=== PATIENT | female | born 1995 | race Caucasian/White ===

== ENCOUNTER → 2020-06-26 | Outpatient (CLI) | payer OTHER ==
[2020-06-26 16:44] LABS: MUDS CUTOFF CONCENTRATIONS CUTOFF CONC BELOW:
[2020-06-26 16:50] LABS: BILIRUBIN,URINE NEGATIVE (NEGATIVE); GLUCOSE, URINE (UA) NEGATIVE (NEGATIVE); KETONES,URINE (UA) 15 mg/dL (NEGATIVE); LEUKOCYTE ESTERASE, URINE TRACE (NEGATIVE); NITRITE,URINE NEGATIVE (NEGATIVE); OCCULT BLOOD,URINE NEGATIVE (NEGATIVE); PROTEIN,URINE NEGATIVE (NEGATIVE); UROBILINOGEN,URINE 0.2 (NORMAL) E.U./dL (NORMAL)
[2020-06-26 17:04] LABS: CLARITY,URINE CLEAR (CLEAR)
[2020-06-26 17:05] LABS: BACTERIA,URINE None Seen /HPF (None Seen); RBC,URINE None Seen /HPF (0-5); SQUAMOUS EPITHELIAL CELL,UR MOD Squamous (<= Few)
[2020-06-26 17:10] LABS: AMPHETAMINE SCREEN,URINE NEGATIVE (NEGATIVE); BENZODIAZEPINES SCREEN, URINE NEGATIVE (NEGATIVE); COCAINE SCREEN URINE NEGATIVE (NEGATIVE); METHADONE SCREEN, URINE NEGATIVE (NEGATIVE); METHAMPHETAMINES SCREEN, URINE NEGATIVE (NEGATIVE); OPIATE SCREEN, URINE NEGATIVE (NEGATIVE); OXYCODONE SCREEN, URINE NEGATIVE (NEGATIVE); PROPOXYPHENE SCREEN, URINE NEGATIVE (NEGATIVE); TRICYCLIC ANTIDEPRESSANT,URINE NEGATIVE (NEGATIVE)
== END ==
LOC: LAB.R 08:00
PROVIDERS: ATTEND Advanced Practice Midwife
DX: Z32.01 Encounter for pregnancy test, result positive (principal)
CPT/HCPCS: 80306; 80349; 81001; 81599; 87086

== ENCOUNTER 2020-07-03 16:06 | Outpatient (CLI) | payer OTHER | END 2020-07-03 16:07 | disposition home or self-care (01) | LOC: LAB 16:06 | PROVIDERS: ATTEND Nurse Practitioner Obstetrics & Gynecology | DX: O20.9 Hemorrhage in early pregnancy, unspecified (principal) | CPT/HCPCS: 84702; 86900; 86901 ==

== ENCOUNTER 2020-07-09 12:56 | Outpatient (CLI) | payer OTHER ==
--- NOTE | 2020-07-09 17:34 | Ultrasound Report ---
PROCEDURE: OB First Trimester w/TV INDICATIONS: POSITIVE TEST OUTSIDE/PRIOR DATING DATA: Last menstrual period (LMP): 05/22/2020. LMP-based estimated date of delivery (NICHOLAS): 02/26/2021. First dating scan (date and location): 09/08/2019. Estimated date of delivery (NICHOLAS) from first dating scan: Not applicable. TECHNIQUE: Real-time scanning was performed of the fetus and maternal pelvic organs, with image documentation. Endovaginal scanning was also performed to better visualize the fetus and maternal ovaries. COMPARISON: None FINDINGS: Embryo: Intrauterine gestational sac with possible pole is identified. Gestational sac measure s 10 mm corresponding to 5 weeks 5 days. No definitive crown-rump length is identified. No hear t tones are identified. Measurement variability in dating: +/- 4 weeks by LMP, +/- 7 days by mean sac diameter (use before 6 weeks gestation if crown-rump length not able to be measured), +/- 5 days by crown-rump length (6-12 weeks gestation). Maternal organs: Ovaries demonstrate a right corpus luteal cyst.. Limited images through the kidney s demonstrate no hydronephrosis. IMPRESSION: 1. Intrauterine gestational sac without definitive visualization of crown-rump length. This could be secondary to early gestational age, currently measured at 5 weeks 5 days based on gestational sac siz e. Recommend short interval imaging follow-up for evaluation of progression. Reviewed by: Giuliana Greenfield MD on 07/09/2020 5:32 PM PST Approved by: Giuliana Greenfield MD on 07/09/2020 5:32 PM PST Station ID: [id number]
== END 2020-07-09 12:57 | disposition home or self-care (01) ==
LOC: DI 12:56
PROVIDERS: ATTEND Advanced Practice Midwife
DX: Z32.01 Encounter for pregnancy test, result positive (principal)
CPT/HCPCS: 76801; 76817

== ENCOUNTER 2020-07-12 11:16 | Outpatient (CLI) | payer OTHER ==
[2020-07-12 12:28] LABS: HCG,QUALITATIVE BLOOD POSITIVE
== END 2020-07-12 11:17 | disposition home or self-care (01) ==
LOC: LAB 11:16
PROVIDERS: ATTEND Nurse Practitioner Obstetrics & Gynecology
DX: O36.80X0 Pregnancy with inconclusive fetal viability, not applicable or unspecified (principal)
CPT/HCPCS: 36415; 84703

== ENCOUNTER 2020-07-14 07:05 | Outpatient (CLI) | payer OTHER | END 2020-07-14 07:06 | disposition home or self-care (01) | LOC: LAB 07:05 | PROVIDERS: ATTEND Nurse Practitioner Obstetrics & Gynecology | DX: O36.80X0 Pregnancy with inconclusive fetal viability, not applicable or unspecified (principal) | CPT/HCPCS: 36415; 84702 ==

== ENCOUNTER 2020-07-16 11:16 | Outpatient (CLI) | payer OTHER | END 2020-07-16 11:17 | disposition home or self-care (01) | LOC: LAB 11:16 | PROVIDERS: ATTEND Obstetrics & Gynecology | DX: O36.80X0 Pregnancy with inconclusive fetal viability, not applicable or unspecified (principal); N93.9 Abnormal uterine and vaginal bleeding, unspecified | CPT/HCPCS: 36415; 84702; 84703 ==

== ENCOUNTER 2020-07-25 08:00 | Outpatient (CLI) | payer OTHER | END 2020-07-25 23:59 | disposition home or self-care (01) | LOC: LAB.WCP 08:00 | PROVIDERS: ATTEND Nurse Practitioner Obstetrics & Gynecology | DX: O03.9 Complete or unspecified spontaneous abortion without complication (principal) | CPT/HCPCS: 36415; 84702 ==

== ENCOUNTER → 2020-08-01 | Outpatient (CLI) | payer OTHER | LOC: LAB.WCP 07-30 08:00 | PROVIDERS: ATTEND Nurse Practitioner Obstetrics & Gynecology | DX: O03.9 Complete or unspecified spontaneous abortion without complication (principal) | CPT/HCPCS: 36415; 84702 ==

== ENCOUNTER 2020-08-08 08:00 | Outpatient (CLI) | payer OTHER | END 2020-08-08 23:59 | disposition home or self-care (01) | LOC: LAB.WCP 08:00 | PROVIDERS: ATTEND Nurse Practitioner Obstetrics & Gynecology | DX: O03.9 Complete or unspecified spontaneous abortion without complication (principal) | CPT/HCPCS: 36415; 84702 ==

== ENCOUNTER 2020-12-13 12:06 | Outpatient (CLI) | payer OTHER ==
[2020-12-13 12:09] LABS: MUDS CUTOFF CONCENTRATIONS CUTOFF CONC BELOW:
[2020-12-13 12:15] LABS: BILIRUBIN,URINE NEGATIVE (NEGATIVE); GLUCOSE, URINE (UA) NEGATIVE (NEGATIVE); KETONES,URINE (UA) TRACE mg/dL (NEGATIVE); LEUKOCYTE ESTERASE, URINE TRACE (NEGATIVE); NITRITE,URINE NEGATIVE (NEGATIVE); OCCULT BLOOD,URINE NEGATIVE (NEGATIVE); PH,URINE 6.5 PH (5.0-7.5); PROTEIN,URINE NEGATIVE (NEGATIVE); UROBILINOGEN,URINE 0.2 (NORMAL) E.U./dL (NORMAL)
[2020-12-13 12:16] LABS: CLARITY,URINE CLEAR (CLEAR)
[2020-12-13 12:22] LABS: AMORPHOUS SEDIMENT,UR Rare /LPF; BACTERIA,URINE Rare /HPF (None Seen); MUCUS,URINE Few Strands; RBC,URINE 0-5 /HPF (0-5); SQUAMOUS EPITHELIAL CELL,UR FEW Squamous (<= Few); WBC,URINE 0-3 /HPF (0-5)
[2020-12-13 12:46] LABS: AMPHETAMINE SCREEN,URINE NEGATIVE (NEGATIVE); BARBITURATE SCREEN,UR NEGATIVE (NEGATIVE); BENZODIAZEPINES SCREEN, URINE NEGATIVE (NEGATIVE); COCAINE SCREEN URINE NEGATIVE (NEGATIVE); METHADONE SCREEN, URINE NEGATIVE (NEGATIVE); METHAMPHETAMINES SCREEN, URINE NEGATIVE (NEGATIVE); OPIATE SCREEN, URINE NEGATIVE (NEGATIVE); OXYCODONE SCREEN, URINE NEGATIVE (NEGATIVE); PROPOXYPHENE SCREEN, URINE NEGATIVE (NEGATIVE); THC CANNABINOID SCREEN, URINE POSITIVE (NEGATIVE); TRICYCLIC ANTIDEPRESSANT,URINE NEGATIVE (NEGATIVE)
== END 2020-12-13 12:07 | disposition home or self-care (01) ==
LOC: LAB.R 12:06
PROVIDERS: ATTEND Nurse Practitioner Obstetrics & Gynecology
DX: Z32.01 Encounter for pregnancy test, result positive (principal)
CPT/HCPCS: 80306; 81001; 87086

== ENCOUNTER 2020-12-24 11:40 | Outpatient (CLI) | payer OTHER ==
--- NOTE | 2020-12-24 16:45 | Ultrasound Report ---
PROCEDURE: OB First Trimester INDICATIONS: positive test OUTSIDE/PRIOR DATING DATA: Last menstrual period (LMP): 10/17/2020. LMP-based estimated date of delivery (NICHOLAS): 05/24/2021. First dating scan (date and location): 12/24/2020. Estimated date of delivery (NICHOLAS) from first dating scan: 07/29/2021. TECHNIQUE: Real-time scanning was performed of the fetus and maternal pelvic organs, with image documentation. COMPARISON: None FINDINGS: Embryo: Single live intrauterine is identified with crown-rump length measuring 2.3 cm cor responding to 9 weeks 0 days. heart rate is present at 178 bpm. There is a small focus of subch orionic hemorrhage measuring 6 x 5 x 10 mm. Measurement variability in dating: +/- 4 weeks by LMP, +/- 7 days by mean sac diameter (use before 6 weeks gestation if crown-rump length not able to be measured), +/- 5 days by crown-rump length (6-12 weeks gestation). Maternal organs: Ovaries demonstrate a left corpus luteal cyst measuring 21 x 16 x 14 mm.. IMPRESSION: 1. Single live intrauterine measuring 9 weeks 0 days. 2. Small focus of subchorionic hemorrhage. Reviewed by: Giuliana Greenfield MD on 12/24/2020 4:44 PM PDT Approved by: Giuliana Greenfield MD on 12/24/2020 4:44 PM PDT Station ID: [id number]
== END 2020-12-24 11:41 | disposition home or self-care (01) ==
LOC: DI 11:40
PROVIDERS: ATTEND Nurse Practitioner Obstetrics & Gynecology
DX: Z32.01 Encounter for pregnancy test, result positive (principal); O41.8X10 Other specified disorders of amniotic fluid and membranes, first trimester, not applicable or unspecified; Z3A.09 9 weeks gestation of pregnancy

== ENCOUNTER 2021-01-02 08:00 | Outpatient (CLI) | payer OTHER ==
[2021-01-02 21:44] LABS: CHLAMYDIA TRACHOMATIS DNA NEGATIVE (NEGATIVE); NEISSERIA GONORRHOEAE DNA NEGATIVE (NEGATIVE); TRICHOMONAS VAGINALIS DNA NEGATIVE (NEGATIVE)
== END 2021-01-02 23:59 | disposition home or self-care (01) ==
LOC: LAB.WC 08:00
PROVIDERS: ATTEND Nurse Practitioner Obstetrics & Gynecology
DX: Z36.89 Encounter for other specified antenatal screening (principal)
CPT/HCPCS: 87491; 87591; 87661

== ENCOUNTER 2021-01-14 10:17 | Outpatient (CLI) | payer OTHER ==
[2021-01-14 10:45] LABS: BASOPHILS % (AUTO) 0.7 %; EOSINOPHILS # (AUTO) 0.1 10^3/uL (0.0-0.7); EOSINOPHILS % (AUTO) 0.8 %; HCT - HEMATOCRIT 37.4 % (37.0-47.0); LYMPHOCYTES # (AUTO) 1.6 10^3/uL (1.5-3.5); LYMPHOCYTES % (AUTO) 26.3 %; MEAN CORPUSCULAR HEMOGLOBIN 31.2 pg (27.0-31.0); MEAN CORPUSCULAR HGB CONC 34.8 g/dL (32.0-36.0); MEAN CORPUSCULAR VOLUME 89.7 fL (81.0-99.0); MEAN PLATELET VOLUME 11.9 fL (7.9-10.8); MONOCYTES # (AUTO) 0.5 10^3/uL (0.0-1.0); MONOCYTES % (AUTO) 7.5 %; NEUTROPHILS % (AUTO) 64.4 %; PLT - PLATELET COUNT 241 10^3/uL (130-450); RED BLOOD COUNT 4.17 10^6/uL (4.20-5.40); RED CELL DISTRIBUTION WIDTH 12.2 % (12.0-15.0); WHITE BLOOD COUNT 6.1 x10^3/uL (4.8-10.8)
[2021-01-16 12:38] LABS: HEPATITIS B SURFACE ANTIGEN NON-REACTIVE (NON-REACTIVE)
[2021-01-16 12:51] LABS: HEPATITIS C ANTIBODY NON-REACTIVE (NON-REACTIVE)
[2021-01-16 15:47] LABS: HIV AG/AB 4TH GEN NON-REACTIVE (NON-REACTIVE)
== END 2021-01-14 10:18 | disposition home or self-care (01) ==
LOC: LAB 10:17
PROVIDERS: ATTEND Nurse Practitioner Obstetrics & Gynecology
DX: Z34.90 Encounter for supervision of normal pregnancy, unspecified, unspecified trimester (principal); Z36.89 Encounter for other specified antenatal screening; Z36.8A Encounter for antenatal screening for other genetic defects
CPT/HCPCS: 36415; 81220; 81599; 85025; 86592; 86762; 86787; 86803; 86850; 86900; 86901; 87340; 87389

== ENCOUNTER 2021-02-10 09:52 | Outpatient (CLI) | payer OTHER ==
[2021-02-13 09:21] LABS: AFP MOM 0.81; CALCULATED GESTATIONAL AGE 16.6; CIGARETTE SMOKER? NOT GIVEN; HCG MOM 1.01; HISTORY OF NEURAL TUBE DEFECTS N; INSULIN DEPEND DIABETIC N; MATERNAL WEIGHT 174 lbs; NUMBER OF FETUSES 1; PAPP-A 1034.1 ng/mL
== END 2021-02-10 09:53 | disposition home or self-care (01) ==
LOC: LAB 09:52
PROVIDERS: ATTEND Nurse Practitioner Obstetrics & Gynecology
DX: Z36.8A Encounter for antenatal screening for other genetic defects (principal)
CPT/HCPCS: 82105; 82677; 84163; 84702; 86336

== ENCOUNTER 2021-03-08 08:33 | Outpatient (CLI) | payer SELFPAY ==
--- NOTE | 2021-03-08 19:01 | Ultrasound Report ---
PROCEDURE: OB Detailed Eval INDICATIONS: SUPERVISON OF NORMAL OUTSIDE/PRIOR DATING DATA: Last menstrual period (LMP): 10/17/2020. LMP-based estimated date of delivery (NICHOLAS): 07/24/2021. First dating scan (date and location): 12/24/2020. Estimated date of delivery (NICHOLAS) from first dating scan: 07/29/2021. TECHNIQUE: Real-time scanning was performed of the fetus, with image documentation and biometric measurements. Endovaginal scanning: None COMPARISON: 12/24/2020 FINDINGS: General: A single living intrauterine gestation is present. Presentation: Breech Placenta: Placental position is anterior, without previa. Amniotic fluid index: 12.5 cm, normal for gestational age. heart rate: 137 beats per minute. Maternal cervical canal: 4.6 cm long; normal length is 2.5 cm or more. biometrics: Biparietal diameter: 4.2 cm, 18 week 6 day Head circumference: 16.5 cm, 19 week 2 day Abdominal circumference: 14.6 cm, 19 week 6 day Femur length: 3.1 cm, 19 week 5 day Estimated gestational age from initial scan: 19 week 4 day Composite gestational age from present scan: 19 week 3 day Estimated weight and percentile: 308 g, 54 percentile Measurement variability in biometric dating: +/- 10 days from 12-20 weeks gestation, +/- 2 weeks from 20-30 weeks gestation, +/- 3 weeks at 30 weeks gestation or later. Anatomic survey: Neuro: Ventricles are normal at less than 10 mm. Cisterna magna is normal at 3-11 mm. Cerebellum i s normal in size and morphology. Nuchal skin fold: Normal at less than 6 mm between 14 and 20 weeks gestational age. Face: Nose and lips, facial profile are normal. Spine: Not well visualized due to patient positioning Heart: 4-chambered heart is present, with normal ventricular outflow tracts. Diaphragm: Diaphragm is intact. Stomach: Left-sided stomach is present. Kidneys: No hydronephrosis. Normal is less than 5 mm in 2nd trimester, less than 7 mm in 3rd trimester. Cord: 3 vessel cord has orthotopic insertion. Bladder: Normal in size. Extremities: All 4 extremities are visualized. IMPRESSION: Single live intrauterine consistent with 19 week 3 day gestation by ultrasound. spine not well visualized due to patient positioning. Attention will be given in follow-up scan s Reviewed by: Cory Tejada MD on 03/08/2021 5:59 PM AKJANET Approved by: Cory Tejada MD on 03/08/2021 5:59 PM AKJANET Station ID: [id number]
== END 2021-03-08 08:34 | disposition home or self-care (01) ==
LOC: DI 08:33
PROVIDERS: ATTEND Nurse Practitioner Obstetrics & Gynecology
DX: Z34.02 Encounter for supervision of normal first pregnancy, second trimester (principal)

== ENCOUNTER 2021-03-28 14:26 | Outpatient (CLI) | payer OTHER ==
--- NOTE | 2021-03-29 09:18 | Ultrasound Report ---
PROCEDURE: OB F/U or Repeat INDICATIONS: OUTSIDE/PRIOR DATING DATA: Last menstrual period (LMP): 10/17/2020. LMP-based estimated date of delivery (NICHOLAS): 08-12. First dating scan (date and location): 12/24/2020. Estimated date of delivery (NICHOLAS) from first dating scan: 07/29/2021. The below data below was generated using the ultrasound NICHOLAS of 07/29/2021 TECHNIQUE: Real-time scanning was performed of the fetus, with image documentation. COMPARISON: 03/08/2021, 12/24/2020 FINDINGS: General: A single live intrauterine gestation is present. Presentation: Cephalic Placenta: Placental position is anterior, without previa. Amniotic fluid index: 14.3 cm, within normal limits for gestational age. heart rate: 148 beats per minute. Maternal cervical canal: 3.4 cm long; normal length is 2.5 cm or more. Other: Not applicable. No significant abnormality of the spine can be seen. However, the skin line overlying the spine is not well seen, secondary to position. IMPRESSION: No significant abnormality is identified. No significant abnormality of the spine is seen. Reviewed by: Byron Schafer MD on 03/29/2021 8:16 AM REJI Approved by: Byron Schafer MD on 03/29/2021 8:16 AM REJI Station ID: [id number]
== END 2021-03-28 14:27 | disposition home or self-care (01) ==
LOC: DI 14:26
PROVIDERS: ATTEND Nurse Practitioner Obstetrics & Gynecology
DX: Z34.00 Encounter for supervision of normal first pregnancy, unspecified trimester (principal); Z36.89 Encounter for other specified antenatal screening

== ENCOUNTER 2021-04-25 11:31 | Outpatient (CLI) | payer OTHER ==
[2021-04-25 12:52] LABS: HCT - HEMATOCRIT 33.4 % (37.0-47.0); HGB - HEMOGLOBIN 11.3 g/dL (12.0-16.0); MEAN CORPUSCULAR HEMOGLOBIN 31.5 pg (27.0-31.0); MEAN CORPUSCULAR HGB CONC 33.8 g/dL (32.0-36.0); RED BLOOD COUNT 3.59 10^6/uL (4.20-5.40); RED CELL DISTRIBUTION WIDTH 12.1 % (12.0-15.0); WHITE BLOOD COUNT 10.9 x10^3/uL (4.8-10.8)
== END 2021-04-25 11:32 | disposition home or self-care (01) ==
LOC: LAB 11:31
PROVIDERS: ATTEND Advanced Practice Midwife
DX: Z34.90 Encounter for supervision of normal pregnancy, unspecified, unspecified trimester (principal); Z36.8A Encounter for antenatal screening for other genetic defects
CPT/HCPCS: 36415; 82950; 85027

== ENCOUNTER 2021-07-01 08:00 | Outpatient (CLI) | payer OTHER | END 2021-07-01 23:59 | disposition home or self-care (01) | LOC: LAB.WC 08:00 | PROVIDERS: ATTEND Nurse Practitioner Obstetrics & Gynecology | DX: Z36.85 Encounter for antenatal screening for Streptococcus B (principal) | CPT/HCPCS: 87797 ==

== ENCOUNTER 2021-07-16 13:30 | Outpatient (CLI) | payer OTHER ==
[2021-07-16 14:04] LABS: HCT - HEMATOCRIT 37.9 % (37.0-47.0); HGB - HEMOGLOBIN 12.6 g/dL (12.0-16.0); MEAN CORPUSCULAR HEMOGLOBIN 30.1 pg (27.0-31.0); MEAN CORPUSCULAR HGB CONC 33.2 g/dL (32.0-36.0); MEAN CORPUSCULAR VOLUME 90.7 fL (81.0-99.0); MEAN PLATELET VOLUME 11.6 fL (7.9-10.8); RED BLOOD COUNT 4.18 10^6/uL (4.20-5.40); RED CELL DISTRIBUTION WIDTH 12.7 % (12.0-15.0); WHITE BLOOD COUNT 10.3 x10^3/uL (4.8-10.8)
[2021-07-16 14:18] LABS: CREATININE,URINE 45.2 mg/dL; TOTAL PROTEIN,URINE TIMED < 6 mg/dL
[2021-07-16 14:23] LABS: ALBUMIN 3.1 g/dL (3.2-5.5); ALBUMIN/GLOBULIN RATIO 0.8 (1.0-2.2); BILIRUBIN,TOTAL 0.5 mg/dL (0.2-1.0); CALCIUM 8.8 mg/dL (8.5-10.3); CREATININE 0.5 mg/dL (0.4-1.0); TOTAL PROTEIN 7.1 g/dL (6.7-8.2)
== END 2021-07-16 13:31 | disposition home or self-care (01) ==
LOC: LAB 13:30
PROVIDERS: ATTEND Nurse Practitioner Obstetrics & Gynecology
DX: R03.0 Elevated blood-pressure reading, without diagnosis of hypertension (principal)
CPT/HCPCS: 36415; 80053; 82570; 84156; 85027

== ENCOUNTER 2021-07-22 12:38 | Inpatient (IN) | payer OTHER ==
[2021-07-22] MEDS ORDERED: miSOPROStoL 200 MCG TABLET BC PRN (13:10)
[2021-07-22] MEDS ORDERED: SODIUM CHLORIDE FLUSH 0.9% 10 ML SYRINGE IVP PRN (13:10)
[2021-07-22] MEDS ORDERED: TRANEXAMIC ACID IN NACL 1,000 MG/100 ML BAG IV PRN (13:10)
[2021-07-22] MEDS ORDERED: OXYTOCIN/SODIUM CHLORIDE 500 ML IV PRN (13:10)
[2021-07-22] MEDS ORDERED: ONDANSETRON 4 MG/2 ML VIAL IVP PRN (13:10)
[2021-07-22] MEDS ORDERED: METHYLERGONOVINE 0.2 MG/ML VIAL IM PRN (13:10)
[2021-07-22] MEDS ORDERED: OXYTOCIN 10 UNIT/ML VIAL IM PRN (13:10)
[2021-07-22] MEDS ORDERED: CARBOPROST TROMETHAMINE 250 MCG/ML AMP IM PRN (13:10)
--- NOTE | 2021-07-22 13:15 | HISTORY & PHYSICAL EXAMINATION ---
Admit History - Visit Reason Visit Reason: Other - : 3 Parity: 2 Premature: 0 Ectopic: 0 : 0 Care: positive: [facility] Risk/History: positive: None Complications This : positive: induced HTN Smoking Status: Never smoker - Mother's Labs Mother's Blood Type: positive: O Mother's RH: positive: Positive GBS: positive: Group B Step Negative Rubella Status: positive: Immune Meds/Allgy - Allergies Allergies/Adverse Reactions: Allergies Allergy/AdvReac Type Severity Reaction Status Date / Time No Known Drug Allergies Allergy Verified 07/22/21 14:26 Review of Systems - Constitutional Constitutional: denies: Fatigue, Fever, Chills, Malaise - Eyes Eyes: denies: Blurred vision, Spots in vision, Dipolpia - Cardiovascular Cariovascular: denies: Irregular heart rate, Palpitations, Chest pain, Edema - Respiratory Respiratory: denies: Cough, SOB at rest - Gastrointestinal Gastrointestinal: denies: Change in bowel habits, Nausea, Vomiting - Integumentary Integumentary: denies: Rash, Pruritis - Neurological Neurological: denies: Headache Physical - Abdominal Exam Contraction Frequency (min/apart): 2-7 Contraction Intensity: positive: Mild Uterine Resting Tone: positive: Soft - Monitoring Strip Review: positive: Category I - Presentation Presentation: positive: Vertex - Vaginal Exam Membranes: positive: Membranes intact Dilation (in cm): 1 Effacement (%): 50 Station: positive: -2 Cervical Position: positive: Posterior - Speculum Exam Speculum Exam Performed: positive: No Plan for Labor - Plan For Labor I expect patient to be DC'd or transferred within 96 hours.: Yes Plan for Labor: Dia is a 26yo @ 39.5wks gestation by LMP c/w 9.0wk U/S who presents to [facility] for medical induction of labor secondary to gestational hypertension. She denies ARZATE, visual disturbances, RUQ or epigastric pain. Mild edema to LE's bilaterally but nothing new. She denies vaginal bleeding, leakage of fluid or contractions. She is found to contract via tocometry every 2-7 minutes and is unable to appreciate the contractions. SVE 50/-2, posterior, vertex. Membranes intact. She is supported by her mother who will depart as soon as her arrives from work. Her pre-eclampsia labs are currently pending. She has been a patient of [facility] for the duration of her which has been complicated only by her recent diagnosis of elevated blood pressure. Her PIH labs were WNL last visit. Dating Criteria: LMP 10/17/2020 Initial U/S @ 9.0wks gestation c/w LMP dating Serial exams - agree OB Hx: G1: 2011, elective termination G2: 07/17/2020 <8wks gestation; SAB G3: Current Medications: PNV Allergies: NKDA PMHx: Anxiety Surgical Hx: none Social Hx: Former smoker. no ETOH or IVDA. Michael. Expecting a boy - Meet Family Hx: Depression - sister; stroke/CVA - MGM LMP: 10/17/2020 NICHOLAS by LMP:07/27/2021 Initial U/S:@9.0wks c/w LMP dating (US NICHOLAS 07/29/2021) FINAL NICHOLAS:07/27/2021 O pos/Rubella immune VZV:immune Genetic testing: CF- Negative; serum integrated-neg FAS: WNL with the exception of poor visualization of spine. Anterior placenta, no previa. 3VC. Size c/w dating (EWF 54%tile). F/u ultrasound WNL and spine visualized WNL Glucola 104 Influenza: 05/13/2021 COVID VACC- 04/03 #1; 04/24 #2 TDAP 05/13/2021 GBS @ 36.5 wks Negative HSV: denies in self and partner Breast pump Rx provided MOD: Anticipate ; Michael. BOY, Meet; unmedicated delivery pp contraception: pap:01/2019 WNL Physical Exam: Normocephalic, atraumatic Heart RRR w/o M/G/R LUngs CTAB Abdomen gravid, soft, nontender EFW 3400g FHR baseline 135, moderate variability, + accels, no decels Contractions palpate mild every 2-7 minutes with soft resting tone SVE 1/50/-2, posterior. Vertex. Intact membranes Bilateral LE's trace edema. Mood is good Assessment: 26yo @ 39.5wks gestation by LMP c/w 9.0wk U/S Gestational hypertension GBS neg FHR Category I Plan: Pre-induction cervical ripening with misoprostol 50mcg BC q 4 hours. Continuous monitoring Encouraged ambulation and position changes. Jacuzzi PRN. Nitrous oxide PRN. Epidural per maternal request. Anticipate .
[2021-07-22 13:54] LABS: BASOPHILS # (AUTO) 0.1 10^3/uL (0.0-0.1); BASOPHILS % (AUTO) 0.5 %; EOSINOPHILS % (AUTO) 0.4 %; HCT - HEMATOCRIT 37.3 % (37.0-47.0); HGB - HEMOGLOBIN 12.6 g/dL (12.0-16.0); LYMPHOCYTES # (AUTO) 1.7 10^3/uL (1.5-3.5); LYMPHOCYTES % (AUTO) 15.6 %; MEAN CORPUSCULAR HEMOGLOBIN 30.2 pg (27.0-31.0); MEAN CORPUSCULAR HGB CONC 33.8 g/dL (32.0-36.0); MEAN CORPUSCULAR VOLUME 89.4 fL (81.0-99.0); MEAN PLATELET VOLUME 11.8 fL (7.9-10.8); MONOCYTES # (AUTO) 0.8 10^3/uL (0.0-1.0); MONOCYTES % (AUTO) 6.7 %; NEUTROPHILS # (AUTO) 8.5 10^3/uL (1.5-6.6); NEUTROPHILS % (AUTO) 76.1 %; PLT - PLATELET COUNT 261 10^3/uL (130-450); RED BLOOD COUNT 4.17 10^6/uL (4.20-5.40); RED CELL DISTRIBUTION WIDTH 12.5 % (12.0-15.0); WHITE BLOOD COUNT 11.2 x10^3/uL (4.8-10.8)
[2021-07-22] MEDS: miSOPROStoL 100 MCG TABLET BC SCH ×2 (14:00→17:58)
[2021-07-22 14:07] LABS: ALBUMIN 3.1 g/dL (3.2-5.5); ALBUMIN/GLOBULIN RATIO 0.8 (1.0-2.2); BILIRUBIN,TOTAL 0.6 mg/dL (0.2-1.0); CALCIUM 9.2 mg/dL (8.5-10.3); CREATININE 0.5 mg/dL (0.4-1.0); POTASSIUM 3.9 mmol/L (3.5-5.0); TOTAL PROTEIN 7.1 g/dL (6.7-8.2)
[2021-07-22 16:15] LABS: CREATININE,URINE 65.4 mg/dL
[2021-07-22 16:30] LABS: TOTAL PROTEIN,URINE TIMED < 6 mg/dL
[2021-07-22] MEDS ORDERED: SODIUM CHLORIDE FLUSH 0.9% 10 ML SYRINGE IVP SCH (17:00)
[2021-07-22] MEDS ORDERED: ZOLPIDEM 5 MG TABLET PO PRN (17:59)
--- NOTE | 2021-07-22 17:59 | PROVIDER PROGRESS NOTE ---
Labor Progress Note - Uterine Monitoring Uterine Monitoring Mode: positive: External toco Contraction Frequency (min/apart): 2-4 Contraction Intensity: positive: Mild Uterine Resting Tone: positive: Soft - Monitoring Monitor Mode: positive: External ultrasound Heart Rate Baseline: 135 Heart Rate Variability: positive: Moderate (6-25 bmp) Accelerations: positive: Present, 15x15 Decelerations: positive: None Strip Review: positive: Category I - Vaginal Exam Dilation (in cm): 1 Effacement (%): 50 Station: -2 Cervical Position: Posterior - Labor Progress Note Labor Progress Note/Additional Text: S: Feeling some slight menstrual-like cramping but denies pain. Open to cervical ripening balloon. Continues to deny ARZATE, visual disturbances, RUQ or epigastric pain. O: BP mildly elevated 140s/90s SVE 1/50/-2, posterior. Vertex. Intact membranes. Christiansen cervical ripening balloon placed with 60cc intrauterine and 60cc vaginal - pt tolerated placement well. S/p 1 dose of 50mcg BC misoprostol FHR baseline 135, moderate variability, + accels, no decels Contractions palpate mild every 2-4 minutes with soft resting tone A: 26yo @ 39.5wks gestation Gestational hypertension GBS neg FHR Category I P: Continue pre-induction cervical ripening with 50mcg BC misoprostol q 4hrs Continuous monitoring Ambien to promote sleep tonight Encouraged ambulation and position changes while awake. Jacuzzi PRN. Nitrous oxide PRN. Epidural per maternal request. Anticipate .
[2021-07-22] MEDS: LACTATED RINGERS 1,000 ML IV SCH (23:16)
--- NOTE | 2021-07-22 23:21 | PROVIDER PROGRESS NOTE ---
Labor Progress Note - Uterine Monitoring Uterine Monitoring Mode: positive: External toco Contraction Frequency (min/apart): 2 Contraction Intensity: positive: Mild Uterine Resting Tone: positive: Soft - Monitoring Monitor Mode: positive: External ultrasound Heart Rate Baseline: 150 Heart Rate Variability: positive: Moderate (6-25 bmp) Accelerations: positive: Present, 15x15 Decelerations: positive: None Strip Review: positive: Category I - Vaginal Exam Dilation (in cm): 4 Effacement (%): 70 Station: -2 Cervical Position: Posterior - Labor Progress Note Labor Progress Note/Additional Text: S: Rating contractions 6.5/10 pain. She is breathing through contractions with ease and her mood is good. Her is supportive at the bedside. O: FHR baseline 150s, moderate variability, + accels, one late deceleration while patient laying flat on back for SVE Contractions palpate mild every 2 minutes with soft resting tone SVE reveals cervical ripening balloon in vaginal vault s/p spontaneous expulsion. S/p 2 doses of 50mcg BC misoprostol A: 26yo @ 39.5wks gestation by LMP c/w 9.0wk U/S Gestational hypertension GBS neg FHR Category I P: Hold misoprostol secondary to tachysystole effective cervical ripening. Encouraged rest. Continuous monitoring. Nitrous oxide PRN. Jacuzzi PRN. Anticipate .
[2021-07-23] MEDS: LACTATED RINGERS 1,000 ML IV SCH ×2 (04:26→15:07)
--- NOTE | 2021-07-23 06:28 | PROVIDER PROGRESS NOTE ---
Labor Progress Note - Uterine Monitoring Uterine Monitoring Mode: positive: External toco Contraction Frequency (min/apart): intermittent, irregular Contraction Intensity: positive: Mild Uterine Resting Tone: positive: Soft - Monitoring Monitor Mode: positive: External ultrasound Heart Rate Baseline: 145 Heart Rate Variability: positive: Moderate (6-25 bmp) Accelerations: positive: Present, 15x15 Decelerations: positive: None Strip Review: positive: Category I - Vaginal Exam Dilation (in cm): 4 Effacement (%): 70 Station: -2 Cervical Position: Posterior - Labor Progress Note Labor Progress Note/Additional Text: S: States she has been having a few more irregular, mild contractions since she has been up and walking this morning. Was able to get about 2 hours of sleep in last night. States she continues to feel tired. Her partner is supportive at the bedside. O: FHR baseline 140, moderate variability, + accels, no decels Contractions palpate mild, intermittently with soft resting tone SVE 4/70/-2, posterior. Vertex. (unchanged from previous exam). A: 26yo @ 39.6wks gestation Gestational hypertension GBS neg FHR Category I P: Initiate pitocin for labor induction with titration per protocol. Consider AROM with next SVE. Continuous monitoring Encouraged ambulation and position changes. Jacuzzi PRN. Nitrous oxide PRN. Epidural per maternal request. Anticipate .
[2021-07-23] MEDS ORDERED: OXYTOCIN/SODIUM CHLORIDE 500 ML IV SCH (07:00)
[2021-07-23] MEDS: CALCIUM CARBONATE CHEW 500 MG TABLET PO SCH (08:27)
--- NOTE | 2021-07-23 13:00 | PROVIDER PROGRESS NOTE ---
Labor Progress Note - Uterine Monitoring Uterine Monitoring Mode: positive: External toco Contraction Frequency (min/apart): 2-3 Contraction Intensity: positive: Mild to moderate Uterine Resting Tone: positive: Soft - Monitoring Monitor Mode: positive: External ultrasound Heart Rate Baseline: 140 Heart Rate Variability: positive: Moderate (6-25 bmp) Accelerations: positive: Present, 15x15 Decelerations: positive: Variable, Intermittent (<50% x20 min) Strip Review: positive: Category II - Vaginal Exam Dilation (in cm): 5 Effacement (%): 70 Station: -2 Cervical Position: Posterior - Labor Progress Note Labor Progress Note/Additional Text: S: Breathing through contractions and she states she feels she is tolerating them well. She is hoping to get in the tub for relaxation. Was able to get a little more rest in the best. Feeling continued anxiety related to variable decelerations but feels reassured after we discussed in detail. Her partner is supportive at the bedside. O: FHR baseline 140, moderate variability, + accels, occasional variable decleration that respond to position changes Contractions palpate moderate every 2-4 minutes with soft resting tone SVE 5/70/-2, posterior. Vertex. SROM @ 1205. A: 26yo @ 39.6wks gestation Gestational hypertension GBS neg FHR Category II-overall reassuring
[2021-07-23] MEDS ORDERED: fentaNYL 100 MCG/2 ML VIAL IVP PRN (14:41)
[2021-07-23] MEDS: LIDOCAINE-MPF 1% 30 ML VIAL ID PRN ×2 (18:00→18:24)
--- NOTE | 2021-07-23 19:41 | DELIVERY NOTE ---
Delivery Note - Labor Labor: positive: Induced by oxytocin - Infant Delivery Method Delivery Method: positive: Spontaneous vaginal delivery - Cervical Ripening Method Cervical Ripening Method: positive: Balloon device, Misoprostil - Presentation Presentation: positive: Vertex, OA - occiput anterior - Nuchal Cord Nuchal Cord: positive: None - Episiotomy Type Episiotomy Type: positive: None - Laceration Laceration: positive: 2nd degree, Perineal - Suture Suture Type: positive: Vicryl Suture Size: positive: 2-0 - Delivery Outcome Delivery Outcome: positive: Livebirth - [place]: positive: Placed in direct skin contact with mother, Stimulated, Warmed, [place] used sex: positive: Male - Cord Cord: positive: 3 vessels - Placenta Placenta: positive: Intact, Spontaneous - Estimated Blood Loss Estimated Blood Loss (in cc): 450 - Post Delivery Events Post Delivery Events: positive: No post delivery events - Delivery Comments (Free Text/Narrative) Delivery Comments (Free Text/Narrative): Labor: This 26yo @ 39.6wks gestation by LMP c/w 9.0wk U/S who presented on 07/22/2021 for medical induction of labor secondary to gestational hypertension. SVE upon arrival was 1/50/-2, posterior and vertex. She was given 2 doses of 50mcg BC misoprostol and had a cervical ripening balloon in place x 12 hours at which time it was spontaneously expelled. FHR pattern demonstrated Category I pattern with intermittent periods of Category II however overall remained reassuring. Pitocin was administered for labor augmentation with a maximum infusion rate of 9mU/mL. SROM occurred at 1205 and was noted to be a moderate amount of clear fluid. Pt progressed to c/c/+1 at 1649. : Normal of viable male on 07/23/2021 @ 1746. No nuchal cord. The was placed on maternal abdomen, stimulated, dried, and placed skin to skin. 's were 9/9 at 1 and 5 min respectively. Pitocin administered via IV for hemostasis. The umbilical cord was allowed to stop pulsating at which time it was doubly clamped by CNM and cut by FOB. Cord blood was obtained. 3VC. Fundal massage and gentle cord traction were applied for active management of the third stage. Placenta delivered spontaneously and intact at 1750. EBL 450mL. Fourth stage: Uterine fundus firm and there is no excessive bleeding. The perineum, vagina, and cervix were inspected and noted to have 2nd degree perineal laceration which was repaired using a 2-[address]-1 needle, in standard fashion and under sterile conditions. Vaginal examination following the repair was done. Tissues well approximated. Family bonding well. Both mother and baby were left in stable condition.
[2021-07-23] MEDS: IBUPROFEN 800 MG TABLET PO SCH (21:00)
[2021-07-23] MEDS: ACETAMINOPHEN 500 MG TABLET PO SCH (21:01)
[2021-07-23] MEDS: DOCUSATE SODIUM 100 MG CAPSULE PO SCH (21:02)
[2021-07-24] MEDS: IBUPROFEN 800 MG TABLET PO SCH ×4 (02:49→21:27)
[2021-07-24] MEDS: ACETAMINOPHEN 500 MG TABLET PO SCH ×2 (05:30→14:26)
[2021-07-24] MEDS: DOCUSATE SODIUM 100 MG CAPSULE PO SCH ×2 (08:45→21:27)
--- NOTE | 2021-07-24 12:32 | PROVIDER PROGRESS NOTE ---
Subjective - Subjective Subjective: S: Bonding well with baby. without difficulty. States she was able to get some rest last night and is feeling great today. Intends a nap this afternoon in anticipation for likely a longer night tonight of baby being awake. She states her bleeding is decreased and is light. Her pain is well controlled with oral medications. She denies concerns or complaints at this time. Her is supportive at the bedside. O: Heart RRR w/o M/G/R, lungs CTAB, abdomen soft and nontender with fundus firm at U, perineum intact, light lochia rubra, bilateral LE's trace edema. A: 26yo PPD#1 s/p TSVD viable male infant 2nd degree perineal laceration -intact, repair with mild edema P: Continue routine care and medications. Evaluate for discharge home tomorrow. Pt verbalized understanding and agrees to above plan. She denies further questions or concerns at this time. Objective - Vital Signs/Intake & Output Vital Signs: Vital Signs x48h Temp Pulse Resp BP 07/24/21 08:45 37.0 C 91 16 131/77 H Intake & Output: Intake & Output 07/21/21 07/22/21 07/23/21 07/24/21 23:59 23:59 23:59 23:59 Intake Total 500 3141.666 940 Output Total 2350 600 Balance 500 791.666 340 - Lab Results Fish Bones: 07/22/21 13:40 07/22/21 13:40
[2021-07-24] MEDS: CALCIUM CARBONATE CHEW 500 MG TABLET PO SCH (21:28)
[2021-07-25] MEDS: ACETAMINOPHEN 500 MG TABLET PO SCH ×3 (00:18→09:38)
[2021-07-25] MEDS: IBUPROFEN 800 MG TABLET PO SCH ×2 (04:11→09:39)
--- NOTE | 2021-07-25 04:27 | Discharge Plan ---
Discharge Plan Problem Reviewed?: Yes Disposition: Home, Self Care Condition: Good Diet: Regular Activity Restrictions: No Restrictions Shower Restrictions: No Driving Restrictions: No Weight Bearing: Full Weight Instruction Topics: Vaginal After No Smoking: If you smoke, Please STOP! Call for help. Follow-up with: Ebony Kincaid CNM, ARNP [Provider Admit Priv/Credential] - 1 Week
--- NOTE | 2021-07-25 04:35 | DISCHARGE SUMMARY ---
Discharge Summary Condition at Discharge: Good Discharge Disposition: 01 Home, Self Care - HOSPITAL COURSE Hospital Course: Date of Admission: 07/22/2021 Date of Discharge: 07/25/2021 Diagnosis on Admission: 1. 26yo @ 39.5wks gestation by LMP c/w 9.0wk U/S 2. Gestational hypertension 3. GBS neg 4. FHR Category I Diagnosis on Discharge: 1. 26yo PPD#2 s/p TSVD viable male 2. 2nd degree perineal laceration -intact 3. Gestational hypertension - normotensive 4. 5. Normal recovery Brief History: Dia is patient of [facility] who presented on 07/22/2021 for medical induction of labor secondary to gestational hypertension. Her pre-eclampsia labs were negative upon admission and her blood pressures remained mildly elevated throughout her labor course. She persistently denied headaches, visual disturbances, RUQ or epigastric pain. She was given 2 doses of 50mcg BC misoprostol and a cervical ripening balloon was placed for pre-induction cervical ripening. Pitocin was initiated for labor augmentation with a maximum infusion rate of 9mU/mL. She progressed to spontaneously deliver a viable male on 07/23/2021 @ 1746. Apgars were 9/9 at 1 and 5 minutes respectively. She was noted to have a second degree perineal laceration which was repaired using a 2-[address]-1 needle, in standard fashion and under sterile conditions. EBL 450mL. She has been doing well in her course. She is ambulating and tolerating a regular diet. She is urinating without difficulty and her lochia is normal. Her pain is well controlled with oral medications. She is bonding well with her baby and without difficulty. She will be discharged home today on day number 2 with instructions to continue taking her vitamin while and to continue taking ibuprofen and tylenol over the counter as needed for pain management. She intends to follow up with myself at [facility] in 1 week or sooner if needed. She has been given precautions to call if she has any worsening fevers, chills, abdominal pain, increased vaginal bleeding or foul smelling vaginal lochia. Physical Exam: Heart RRR w/o M/G/R, lungs CTAB, abdomen soft and nontender with fundus firm at U-1, perineum intact, light lochia rubra, repair with mild edema, bilateral LE's trace edema. - ALLERGIES Allergies/Adverse Reactions: Allergies Allergy/AdvReac Type Severity Reaction Status Date / Time No Known Drug Allergies Allergy Verified 07/22/21 14:26 - LABS Result Diagrams: 07/22/21 13:40 07/22/21 13:40
[2021-07-25 09:03] VITALS: BP 124/81
[2021-07-25] MEDS: DOCUSATE SODIUM 100 MG CAPSULE PO SCH (09:39)
== END 2021-07-25 12:40 | disposition home or self-care (01) | DRG 807 ==
LOC: WFO 12:38 → FBP 12:40 → WFO 13:09 → FBP 13:10
PROVIDERS: ADMIT Nurse Practitioner Obstetrics & Gynecology; ATTEND Nurse Practitioner Obstetrics & Gynecology
PROC: 3E0DXGC Introduction of Other Therapeutic Substance into Mouth and Pharynx, External Approach (ICD-10-PCS; 2021-07-22)
PROC: 0U7C7ZZ Dilation of Cervix, Via Natural or Artificial Opening (ICD-10-PCS; 2021-07-22)
PROC: 10E0XZZ Delivery of Products of Conception, External Approach (ICD-10-PCS; principal; 2021-07-23)
PROC: 0KQM0ZZ Repair Perineum Muscle, Open Approach (ICD-10-PCS; 2021-07-23)
DX: O13.4 Gestational [pregnancy-induced] hypertension without significant proteinuria, complicating childbirth (principal); O70.1 Second degree perineal laceration during delivery; Z37.0 Single live birth; Z3A.39 39 weeks gestation of pregnancy; Z87.891 Personal history of nicotine dependence
CPT/HCPCS: 36415; 80053; 82570; 84156; 85025; 86850; 86900; 86901; A9270; J7120

== ENCOUNTER 2021-07-30 13:45 | Outpatient (CLI) | payer OTHER ==
[2021-07-30 14:20] LABS: HCT - HEMATOCRIT 33.8 % (37.0-47.0); HGB - HEMOGLOBIN 11.4 g/dL (12.0-16.0); MEAN CORPUSCULAR HEMOGLOBIN 30.6 pg (27.0-31.0); MEAN CORPUSCULAR HGB CONC 33.7 g/dL (32.0-36.0); MEAN CORPUSCULAR VOLUME 90.6 fL (81.0-99.0); RED BLOOD COUNT 3.73 10^6/uL (4.20-5.40); RED CELL DISTRIBUTION WIDTH 12.6 % (12.0-15.0); WHITE BLOOD COUNT 9.9 x10^3/uL (4.8-10.8)
[2021-07-30 14:29] LABS: ALBUMIN 3.3 g/dL (3.2-5.5); ALBUMIN/GLOBULIN RATIO 0.8 (1.0-2.2); BILIRUBIN,TOTAL 0.5 mg/dL (0.2-1.0); CALCIUM 8.8 mg/dL (8.5-10.3); CREATININE 0.6 mg/dL (0.4-1.0); POTASSIUM 3.9 mmol/L (3.5-5.0); TOTAL PROTEIN 7.4 g/dL (6.7-8.2)
[2021-07-30 15:09] LABS: CREATININE,URINE 45.4 mg/dL; PROTEIN/CREATININE RATIO,URINE 0.6 (<=0.2)
== END 2021-07-30 13:46 | disposition home or self-care (01) ==
LOC: LAB 13:45
PROVIDERS: ATTEND Nurse Practitioner Obstetrics & Gynecology
DX: O13.3 Gestational [pregnancy-induced] hypertension without significant proteinuria, third trimester (principal)
CPT/HCPCS: 36415; 80053; 82570; 84156; 85027

== ENCOUNTER 2021-07-30 14:25 | Observation (INO) | payer OTHER ==
[2021-07-30 16:56] VITALS: BP 122/81
--- NOTE | 2021-07-30 17:18 | PROVIDER PROGRESS NOTE ---
- HPI Chief Complaint: Hypertension/PIH Current : Vital Signs Temperature 98.1 F 07/30/21 14:30 Heart Rate 98 07/30/21 14:30 Respiratory Rate 20 07/30/21 14:30 Blood Pressure 154/91 H 07/30/21 14:30 Temperature 98.1 F 07/30/21 14:30 Heart Rate 102 H 07/30/21 16:30 Respiratory Rate 20 07/30/21 14:30 Blood Pressure 122/81 H 07/30/21 16:30 O2 Saturation - Exam GEN: NAD HEENT: NCAT CV: RRR RESP: nl effort PSYCH: appropriate effort NEURO: A&O - Procedures NST Procedure: Not applicable- - Plan Plan: Patient is a 26 yo G3 now P1 who presented to clinic today at 1 week s/p TSVD of viable male and was found to have elevated blood pressures in the severe range. Had undergone medically indicated IOL for GHTN Reports course to be unremarkable. She is without difficulty and baby is gaining weight appropriately. 5. Denies pain and feels she is healing well. Initial blood pressure in clinic was 144/88, 160/100, 164/112. Denies ARZATE, visual disturbances, RUQ or epigastric pain. She was directed to present to [facility] for PIH labs and serial BPs. OB Hx: G1: 2011, elective termination G2: 07/17/2020 <8wks gestation; SAB G3: Medications: PNV Allergies: NKDA PMHx: Anxiety Surgical Hx: none Social Hx: Former smoker. no ETOH or IVDA. Michael. Son Meet Family Hx: Depression - sister; stroke/CVA - MGM ROS: As per HPI, otherwise remaining systems are negative PE: VS 98.1 100 130/79 128/81 158/100 122/81 GEN: NAD HEENT: NCAT CV: RRR RESP: nl effort ABD: No RUQ TTP PSYCH: appropriate effort NEURO: A&O CBC and CMP returned without evidence of PIH Urine protein elevated to 0.6, but was non-catheterized sample in a recently delivered patient with active lochia. A/P: 26 yo at one week with elevated blood pressures in clinic here for observation BPs have been in normal range, with the exception of one taken while patient was occupied activity Normal PIH labs No PIH symptoms Warning signs were reviewed Patient was discharged to home
--- NOTE | 2021-08-07 03:40 | Labor Flowsheet ---
Labor Flowsheet Datetime Report Generated by CPN: 08/07/2021 03:40 Datetime: 07/30/2021 16:30 VITAL SIGNS NBP Sys/Jerri/Mean (mmHg): 122 : 81 : 90 Pulse: 102 LaborFlag: Labor Datetime: 07/30/2021 14:26 Stage of : Labor Datetime: 07/24/2021 04:19 SpO2 (%): 98 Datetime: 07/23/2021 20:04 Respirations: 16 Temperature (C): 37.2 Temperature Route: Oral PAIN Pain Scale: 4 Pain Presence: Constant Pain Type: Dull; Ache Pain Location: Perineum Pain Goal: 7 Pain Relief Measures: Comfort Measures Datetime: 07/23/2021 19:35 Pain Assessment Comments: ice to perineum Datetime: 07/23/2021 17:51 Medication Comments: pit wide open Datetime: 07/23/2021 17:50 Patient Care Comments: placenta Datetime: 07/23/2021 17:46 UTERINE ACTIVITY Monitor Mode: External Frequency (min): 2-3 Quality: Strong Duration (sec): 60-90 Pattern: Normal: <= 5 Contractions in 10 Minutes Resting Tone (Palpate): Relaxed FHR Baseline Changes: No Baseline Change Variability: Moderate 6-25 bpm Accelerations: 15X15 Decelerations: None Category: Category I Datetime: 07/23/2021 17:30 FHR Baseline Rate : 120 Datetime: 07/23/2021 16:49 VAGINAL EXAM Dilatation (cm): 10.0 Effacement (%): 100 Station: 1 Datetime: 07/23/2021 16:44 Comments: short periods of minimal Datetime: 07/23/2021 16:39 Contraction Comments: pushing Datetime: 07/23/2021 16:37 COMMUNICATION Communication: Provider at Bedside Datetime: 07/23/2021 16:20 Exam by: c gambs Vaginal Bleeding: Normal Show Cervix, Consistency: Soft Vaginal Exam Comments: possible anterior lip. Difficulty with ve due to pt. discomfort. Datetime: 07/23/2021 16:14 Monitor Interventions for UA: Madeline Adjusted Datetime: 07/23/2021 15:21 I/O Interventions: Up to BR Datetime: 07/23/2021 14:46 Analgesics/Sedatives: Fentanyl (mcg) @ 50mcg IVP Datetime: 07/23/2021 14:38 Communication Comments: CNM notified that pt. [id number] Fentanyl, ce 6/80/0. CNM ordered fent 5 0mcg x2 Datetime: 07/23/2021 14:36 Cervix, Position: Midposition Datetime: 07/23/2021 14:22 Patient Position/Activity: Birthing Ball Datetime: 07/23/2021 14:12 ASSESSMENT A Monitor Mode: Military Pilot Interventions for FHR: Ultrasound Adjusted Datetime: 07/23/2021 13:21 Antiemetics/Antacids: Zofran (mg) @ 4mg ivp Datetime: 07/23/2021 12:18 Amniotic Fluid Color: Clear Amniotic Fluid Amount: Large Datetime: 07/23/2021 12:06 Hygiene: Sis Care; Partial Bath; Underpad Changed; Peripad Changed; Gown Changed; Linens Changed Datetime: 07/23/2021 12:05 Membrane Status: Ruptured Membranes Rupture Method: Spontaneous Datetime: 07/23/2021 11:16 Pitocin Checklist: At Least 1 Acceleration of 15 bpm x 15 Seconds in 30 Minutes or Adequate Variabi lity; No More than 1 Late Deceleration Occurred in Past 30 Minutes; No More than 2 Variable Decelerat ions > 60 Seconds in Duration and decreasing >60 bpm in 30 minutes; Uterus Palpates Soft between Cont ractions MEDICATIONS Pitocin (milliunits): Increased to @ 9mu Datetime: 07/23/2021 10:00 Actions for Decelerations: Side to Side Datetime: 07/23/2021 09:27 Pain Coping: Breathing Through Contractions Datetime: 07/23/2021 06:21 Lie 'A': Longitudinal Datetime: 07/22/2021 23:19 PATIENT CARE IV/Blood Work: IV Bolus Started Datetime: 07/22/2021 23:10 Provider Reviewed Strip: Yes Strip Reviewed by: A. Sanjiv CNM Notification Reason: Status; Labor Status Datetime: 07/22/2021 17:58 Cervical Ripening Agents: Cytotec @ 50mcg Datetime: 07/22/2021 17:42 TEACHING Labor/Induction: Cervical Ripening Teaching Comments: CNM discussing scott balloon
== END 2021-07-30 16:37 | disposition home or self-care (01) ==
LOC: WFO 14:25 → FBP 14:26 → WFO 14:58 → FBP 15:00 → WFO 17:29 → FBP 17:29 → UNDOADMOB 17:31 → UNDODISOB 17:34
PROVIDERS: ADMIT Obstetrics & Gynecology; ATTEND Obstetrics & Gynecology
DX: O90.89 Other complications of the puerperium, not elsewhere classified (principal); R03.0 Elevated blood-pressure reading, without diagnosis of hypertension; Z87.891 Personal history of nicotine dependence
CPT/HCPCS: 36415; 80053; 82570; 84156; 85027; G0378